=== PATIENT | male | born 1950 | race Two or more races ===

== ENCOUNTER 2021-08-19 14:00 | Inpatient (IN) | payer OTHER ==
[~2021-08-19] VITALS: Ht 170.2 cm; Wt 112.5 kg
--- NOTE | 2021-08-19 14:33 | NUR ---
PT STATES HE TAKES MEDICATIONS AT HOME BUT DON'T KNOW THE NAMES OF MED NOR WHAT FOR.
--- NOTE | 2021-08-19 14:55 | NUR ---
PT IS IN ROOM #1A. DR EVANGELISTA EVALUATED THE PT.
[2021-08-19 16:16] LABS: CARBON DIOXIDE 23 mmol/L (21-32); CHLORIDE 102 mmol/L (98-107); CREATININE 1.5 mg/dL (0.6-1.3); GLUCOSE 146 mg/dL (74-106); POTASSIUM 4.3 mmol/L (3.5-5.1); UREA NITROGEN, BLOOD 17 mg/dL (7-18)
[2021-08-19 16:17] LABS: ETHANOL < 3 MG/DL (0-0)
[2021-08-19 16:22] LABS: ALANINE AMINOTRANSFERASE 21 U/L (16-63); ALKALINE PHOSPHATASE 124 U/L (50-136); ASPARTATE AMINOTRANSFERASE 55 U/L (15-37); BILIRUBIN,DIRECT 0.8 mg/dL (0.0-0.2); BILIRUBIN,TOTAL 2.9 mg/dL (0.2-1.0); TOTAL PROTEIN, SERUM 7.1 g/dL (6.4-8.2)
[2021-08-19 16:30] LABS: THYROID STIMULATING HORMONE 3.847 mIU/mL (0.358-3.740)
[2021-08-19 16:40] LABS: HEMATOCRIT 29.8 % (36.7-47.1); MEAN CORPUSCULAR HEMOGLOBIN 37.5 uug (23.8-33.4); MEAN CORPUSCULAR VOLUME 105.2 fL (73.0-96.2); PLATELET COUNT (AUTO) 78 K/uL (152-348)
[2021-08-19] MEDS ORDERED: PANTOPRAZOLE SODIUM 40 MG TABLET.DR PO ONE ×2 (16:45→17:07)
[2021-08-19] MEDS ORDERED: ASPIRIN 325 MG TABLET PO ONE (16:45)
--- NOTE | 2021-08-19 16:48 | NUR ---
CHARLES DILLONP WAS NOTIFIED ACCORDING TO DR JEAN CARLOS UNDERWOOD, SPOKE TO IRIN.
[2021-08-19] MEDS ORDERED: ASPIRIN 325 MG TABLET ONE (17:06)
[2021-08-19 17:08] LABS: *BILIRUBIN,URIN 1+ (NEGATIVE); *BLOOD, URINE 2+ (NEGATIVE); *CLARITY,URINE CLEAR (CLEAR); *COLOR,URINE DARK YELLOW (YELLOW); *KETONES,URINE NEGATIVE (NEGATIVE); LEUKOCYTE ESTERASE ,URINE NEGATIVE (NEGATIVE); NITRITE, URINE NEGATIVE (NEGATIVE); UGLUCOSE NEGATIVE (NEGATIVE)
[2021-08-19 17:17] LABS: BACTERIA,URINE NONE SEEN /HPF (NONE SEEN); SQUAMOUS EPITHELIAL CELL,UR FEW /HPF (NONE SEEN); WBC,URINE 0-3 /HPF (0-3)
[2021-08-19 17:25] LABS: *AMPHETAMINE, URINE NEGATIVE (NEGATIVE); *CANNABINOID, URINE NEGATIVE (NEGATIVE); *COCCAINE, URINE NEGATIVE (NEGATIVE); *OPIATE, URINE NEGATIVE (NEGATIVE); *PHENCYCLIDINE SCREEN,URINE NEGATIVE (NEGATIVE)
[2021-08-19] MEDS ORDERED: LORATIDINE-PSEUDOEPHEDRINE 1 EACH TAB.SR.24H PO STA (18:13)
--- NOTE | 2021-08-19 21:40 | NUR ---
Called [facility] to page Natalya Horton NP.
--- NOTE | 2021-08-19 21:46 | NUR ---
Dr. Petit on panel call with Natalya Horton NP. Patient accepted for admission to [facility], diagnosis: Altered mental status, elevated troponin.
[2021-08-19] MEDS ORDERED: LEVO88TA5 PO (22:00)
[2021-08-19] MEDS ORDERED: SPIR50TA5 PO (22:00)
[2021-08-19] MEDS ORDERED: IV NS 1000 ML 1,000 ML IV PRN (22:00)
[2021-08-19] MEDS ORDERED: MUPI22OI2 (22:00)
[2021-08-19] MEDS ORDERED: LACT10SO3 PO (22:00)
[2021-08-19] MEDS ORDERED: ONDANSETRON 4 MG/2 ML VIAL IV PRN (22:00)
[2021-08-19] MEDS ORDERED: Z GUARD REMEDY PASTE 57 GM TUBE TOP PRN (22:00)
[2021-08-19] MEDS ORDERED: FURO-151 PO (22:00)
[2021-08-19] MEDS ORDERED: ALLO300T2 PO (22:00)
[2021-08-19] MEDS ORDERED: FERR325T6 PO (22:00)
[2021-08-19] MEDS ORDERED: RIFA550T PO (22:00)
[2021-08-19] MEDS ORDERED: MAGNESIUM HYDROXIDE 30 ML LIQUID UDC PO PRN (22:00)
[2021-08-19] MEDS ORDERED: MAGN400C PO (22:00)
[2021-08-19] MEDS ORDERED: ACETAMINOPHEN 325 MG TABLET PO PRN (22:00)
[2021-08-19] MEDS ORDERED: FOLI1TAB94 PO (22:00)
[2021-08-19] MEDS ORDERED: PROP60CA38 PO (22:00)
[2021-08-19] MEDS ORDERED: ATORVASTATIN 40 MG TABLET PO SCH (22:00)
[2021-08-19] MEDS ORDERED: ENOXAPARIN SODIUM 100 MG/ML DISP.SYRIN SQ ONE (22:00)
[2021-08-19] MEDS ORDERED: THIA100T13 PO (22:00)
[2021-08-19] MEDS ORDERED: MULT-1119 PO (22:00)
--- NOTE | 2021-08-19 22:06 | NUR ---
DR. LIZARRAGA (RN CLINICAL DOCUMENTATION, ) SPOKE WITH DR. PAINTER.
[2021-08-19 22:29] LABS: EOSINOPHILS % (MANUAL) 3 % (0-8); LYMPHOCYTES % (MANUAL) 8 % (20-40); MONOCYTES % (MANUAL) 2 % (2-10); NEUTROPHILS % (MANUAL) 87 % (42-75)
--- NOTE | 2021-08-19 23:12 | NUR ---
Report given to Daisy MARTINEZ Tele.
[2021-08-20] VITALS: BP 181/70
[2021-08-20] MEDS ORDERED: hydrALAZINE HCL 20 MG/1 ML VIAL IV PRN (00:30)
[2021-08-20 03:43] LABS: HEMATOCRIT 29.4 % (36.7-47.1); MEAN CORPUSCULAR HEMOGLOBIN 37.1 uug (23.8-33.4); MEAN CORPUSCULAR VOLUME 106.2 fL (73.0-96.2); PLATELET COUNT (AUTO) 74 K/uL (152-348)
[2021-08-20 03:53] LABS: CREATININE 1.8 mg/dL (0.6-1.3); MAGNESIUM 1.4 mg/dL (1.8-2.4); PHOSPHOROUS 2.2 mg/dL (2.5-4.9); POTASSIUM 3.9 mmol/L (3.5-5.1)
[2021-08-20 04:09] VITALS: BP 157/53
--- NOTE | 2021-08-20 05:40 | NUR ---
Pt admitted to Tele, SR with first degree block on monitor. Denies chest pain or SOB. IV site intact running ordered fluids. Able to make needs known. Safety and comfort provided. CAll light within reach. WIll endorse to day shift.
[2021-08-20] MEDS ORDERED: ENOXAPARIN SODIUM 60 MG/0.6 ML DISP.SYRIN SQ SCH (09:00)
[2021-08-20] MEDS ORDERED: ASPIRIN 81 MG TAB.CHEW PO ONE (09:00)
--- NOTE | 2021-08-20 09:00 | NUR ---
Pt is a/o x 4, taiwanese speaking. Pt does not complain of pain this morning. saturating 99% on room air, presenting with normal sinus rhythm. no signs of acute distress, comfort measures provided. will continue to monitor. Possible transfer to [place].
[2021-08-20 10:03] LABS: IRON, SERUM 244 ug/dL (50-175)
[2021-08-20] MEDS: MAGNESIUM SULFATE/D5W 100 ML IV SCH ×2 (11:05→12:17)
[2021-08-20 11:06] VITALS: BP 131/53
[2021-08-20 15:25] VITALS: BP 149/65
[2021-08-20] MEDS ORDERED: NEUTRA PHOS PACKET PO ONE (15:45)
[2021-08-20] MEDS ORDERED: ENOX60DI SQ (16:55)
[2021-08-20] MEDS ORDERED: ACET325T53 PO (16:55)
[2021-08-20] MEDS ORDERED: ONDA4VIA23 IV (16:55)
[2021-08-20] MEDS ORDERED: RXENO XX (16:55)
[2021-08-20] MEDS ORDERED: ATOR40TA PO (16:55)
[2021-08-20 18:35] VITALS: BP 157/66
--- NOTE | 2021-08-20 18:46 | NUR ---
Pt is being discharged, transferring to [facility] on [address] Vitals 157/66, HR 80, saturating 98% on room air. Patient's son and daughter are at bedside, aware of transfer. Consent for transfer signed. All discharge instructions given to patient and family at bedside. Provided son with epic number for providers at [facility] per request and continued questions. Pt is a/o x 4 at time of discharge, no complaint of chest pain. Report given to receiving nurse at [facility]. Pt going to admit to room 6780, receiving doctor is Natasha Carmona. Pt was scheduled for picker packer at 1730, Transport arrived and took pt at 1846. Pt is transferring via ambulance. No signs of acute distress.
== END 2021-08-20 18:45 | disposition short-term general hospital (02) | DRG 280 ==
LOC: ER 14:05 → TELE3 23:18
PROVIDERS: ADMIT Internal Medicine; ATTEND Internal Medicine
DX: I21.4 Non-ST elevation (NSTEMI) myocardial infarction (principal); N17.0 Acute kidney failure with tubular necrosis; E44.0 Moderate protein-calorie malnutrition; D64.9 Anemia, unspecified; D69.6 Thrombocytopenia, unspecified; I25.10 Atherosclerotic heart disease of native coronary artery without angina pectoris; E03.9 Hypothyroidism, unspecified; Z20.822 Contact with and (suspected) exposure to COVID-19; I50.9 Heart failure, unspecified; Z79.890 Hormone replacement therapy; Z68.38 Body mass index [BMI] 38.0-38.9, adult; N18.9 Chronic kidney disease, unspecified; K74.60 Unspecified cirrhosis of liver; E66.9 Obesity, unspecified; I44.0 Atrioventricular block, first degree; I67.2 Cerebral atherosclerosis; M17.12 Unilateral primary osteoarthritis, left knee; Z79.899 Other long term (current) drug therapy; Z87.891 Personal history of nicotine dependence; F10.11 Alcohol abuse, in remission; Z88.8 Allergy status to other drugs, medicaments and biological substances; Z82.49 Family history of ischemic heart disease and other diseases of the circulatory system
CPT/HCPCS: 36415; 70030-TC; 70450; 71045; 83550; 83735; 84100; 84443; 85025; 85730; 93005; 93307; 97161; A4663; G0378; G0480; J0360; J1650; J3475; J7030